=== PATIENT | female | born 1965 | race Caucasian/White ===

== ENCOUNTER 2016-09-28 13:19 | Inpatient (IN) | payer OTHER ==
[2016-09-28 15:35] VITALS: BMI 36.4
--- NOTE | 2016-09-28 18:47 | HP ---
COWS - Scale Resting Pulse: 1= ME 81-100 Sweatin= Chills/Flushing Restless Observation: 1= Difficult to Sit Still Pupil Size: 0= Normal to Room Light Bone or Joint Aches: 1= Mild Discomfort Runny Nose/ Eye Tearin= Nasal Congestion GI Upset > 30mins: 2= Nausea/Diarrhea Tremor Observation: 2= Slight Tremor Visible Yawning Observation: 0= None Anxiety or Irritability: 2=Irritable/Anxious Goose Flesh Skin: 3=Piloerection COWS Score: 14 CIWA Score - CIWA Score Nausea/Vomitin-Mild Nausea/No Vomiting Muscle Tremors: 4-Moderate,w/Arms Extend Anxiety: 4-Mod. Anxious/Guarded Agitation: 4-Moderately Restless Paroxysmal Sweats: 2 Orientation: 1-Uncertain about Date Tacttile Disturbances: 0-None Auditory Disturbances: 0-None Visual Disturbances: 0-None Headache: 2-Mild CIWA-Ar Total Score: 18 Admission ROS BHS - HPI Chief Complaint: WITHDRAWAL SX Allergies/Adverse Reactions: Allergies Allergy/AdvReac Type Severity Reaction Status Date / Time Penicillins Allergy Severe Verified 09/28/16 19:04 shellfish derived Allergy Severe Verified 09/28/16 19:04 venom-honey bee Allergy Severe Verified 09/28/16 19:04 [bee venom (honey bee)] History of Present Illness: 51 YEARS OLD FEMALE WITH LONG HISTORY OF ALCOHOL OPIATE NICOTINE DEPENDENCE, HAS LUPUS AND DEPRESSION, LONGEST SOBRIETY 7 YEARS IS ADMITTED TO DETOX Exam Limitations: No Limitations - Ebola screening Have you traveled outside of the country in the last 21 days: No Have you had contact with anyone from an Ebola affected area: No Have you been sick,other than usual withdrawal symptoms: No Do you have a fever: No - Review of Systems Constitutional: Chills, Changes in sleep, Weight Stable EENT: reports: Other (EYE GLASSES) Respiratory: reports: No Symptoms reported Cardiac: reports: No Symptoms Reported GI: reports: Nausea, Poor Fluid Intake, Abdominal cramping, Other (COLON REMOVED AT AGE OF 42) : reports: Other (PATIENT HAS RIGHT KIDNEY, UNABLE TO REMEMBER WHEN LOST HER LEFT KIDNEY) Musculoskeletal: reports: Muscle Weakness (WALKER) Neuro: reports: Other (DEGENARATED SPINAL DISEASE X "3 YEARS") Endocrine: reports: No Symptoms Reported Hematology: reports: No Symptoms Reported Psychiatric: reports: Judgement Intact, Mood/Affect Appropiate Other Systems: Reviewed and Negative Patient History - Patient Medical History Hx Anemia: No Hx Asthma: No Hx Chronic Obstructive Pulmonary Disease (COPD): No Hx Cancer: No Hx Cardiac Disorders: No Hx Congestive Heart Failure: No Hx Hypertension: Yes (on meds,non compliance) Hx Hypercholesterolemia: Yes (non compliance) Hx Pacemaker: No HX Cerebrovascular Accident: No Hx Seizures: Yes (xanax related seizure 1 month ago and alcohol related) Hx Dementia: No Hx Diabetes: No Hx Gastrointestinal Disorders: No Hx Liver Disease: No Hx Genitourinary Disorders: No Hx Sexually Transmitted Disorders: No Hx Renal Disease (ESRD): No Hx Thyroid Disease: No Hx Human Immunodeficiency Virus (HIV): No (09/29 last) Hx Hepatitis C: No Hx Depression: Yes Hx Suicide Attempt: No Hx Bipolar Disorder: No Hx Schizophrenia: Yes (schizoaffective ? not taking meds "I DO NOT HAVE SCHIZOPHRENIA) - Patient Surgical History Past Surgical History: Yes Hx Neurologic Surgery: No Hx Cataract Extraction: No Hx Cardiac Surgery: No Hx Lung Surgery: No Hx Breast Surgery: No Hx Breast Biopsy: No Hx Abdominal Surgery: No Hx Appendectomy: No Hx Cholecystectomy: No Hx Genitourinary Surgery: No Hx Section: Yes (x4 in 2006) Hx Orthopedic Surgery: Yes (Sx both heels from spurs fx both feet.) Hx Hysterectomy: Yes (in 2004 for bleeding and precancerous) Other Surgical History: Total hysterectomy in 2004 Sx both eyes Anesthesia Reaction: No - PPD History Previous Implant?: Yes Documented Results: Negative w/o proof Implanted On Prior [facility] Admission?: Yes Date: 12/20/13 PPD to be Administered?: Yes - Reproductive History Patient is a Female of Child Bearing Age (11 -55 yrs old): Yes Last Menstrual Period: 09/19/04 Patient : No - Smoking Cessation Smoking history: Current every day smoker Have you smoked in the past 12 months: Yes Aproximately how many cigarettes per day: 20 Cigars Per Day: 0 Hx Chewing Tobacco Use: No Initiated information on smoking cessation: Yes 'Breaking Loose' booklet given: 09/28/16 - Substance & Tx. History Hx Alcohol Use: Yes Hx Substance Use: Yes Substance Use Type: Alcohol, Opiates Hx Substance Use Treatment: Yes - Substances Abused Alcohol Route: Oral Frequency: Daily Amount used: 5 PINTS VOLKA Age of first use: 18 Date of Last Use: 09/27/16 Heroin Route: Inhalation Frequency: Daily Amount used: 10 BAGS Age of first use: 22 Date of Last Use: 09/27/16 Family Disease History - Family Disease History Family Disease History: Other: Mother (alcohol) Admission Physical Exam [facility] - Vital Signs Vital Signs: Vital Signs - 24 hr 09/28/16 15:29 Temperature 96 F L Pulse Rate 86 Respiratory 19 Rate Blood Pressure 141/51 - Physical General Appearance: Yes: Nourished, Appropriately Dressed, Mild Distress, Tremorous, Irritable, Sweating, Anxious HEENTM: Yes: Hearing grossly Normal, Normal ENT Inspection, Normocephalic, Normal Voice Respiratory: Yes: Chest Non-Tender, Lungs Clear, Normal Breath Sounds, No Respiratory Distress, No Accessory Muscle Use Neck: Yes: Supple, Trachea in good position Breast: Yes: Breasts Symetrical Cardiology: Yes: Regular Rhythm, Regular Rate, S1, S2 Genitourinary: Yes: Within Normal Limits, Other (RIGHT KIDNEY REMAIN) Back: Yes: Normal Inspection Musculoskeletal: Yes: Gait Steady (WALKER), Back pain, Muscle Pain, Muscle weakness Extremities: Yes: Non-Tender, Tremors Neurological: Yes: Alert, Normal Response, Depressed Affect Integumentary: Yes: Warm, Other ("I DO NOT USE NEEDLE") Lymphatic: Yes: Within Normal Limits - Diagnostic (1) History of hysterectomy Current Visit: Yes Status: Resolved (2) Hypercholesteremia Current Visit: Yes Status: Chronic Comment: I DO NOT WANT TO TAKE ANYTHING FOR IT (3) Lupus Current Visit: Yes Status: Chronic Comment: LEFT KIDNEY REMOVED UNKNOWN DATE AMBULATE WITH WALKER (4) Nicotine dependence Current Visit: Yes Status: Acute Qualifiers: Nicotine product type: cigarettes Substance use status: uncomplicated Qualified Code(s): F17.210 - Nicotine dependence, cigarettes, uncomplicated (5) Schizoaffective disorder Current Visit: Yes Status: Suspected Qualifiers: Schizoaffective disorder type: depressive Qualified Code(s): F25.1 - Schizoaffective disorder, depressive type (6) Alcohol dependence with uncomplicated withdrawal Current Visit: Yes Status: Acute Cleared for Admission [facility] - Detox or Rehab [facility] Level of Care: Medically Managed Detox Regimen/Protocol: Methadone/Librium BHS Breath Alcohol Content Breath Alcohol Content: 0 Urine Pregancy Test - Result Urine Test Results: Negative- NO Line Present Urine Drug Screen - Results Drug Screen Negative: No Urine Drug Screen Results: OPI-Opiates, BZO-Benzodiazepines, MTD-Methadone, TCA- Tricyclic Antidepress
[2016-09-28] MEDS ORDERED: LOPERAMIDE HCL 2 MG CAPSULE PO PRN (18:57)
[2016-09-28] MEDS ORDERED: chlordiazePOXIDE HCL 25 MG CAPSULE PO ONE (18:57)
[2016-09-28] MEDS ORDERED: METHADONE HCL 10 MG TABLET (FOR DETOX USE ONLY) PO ONE ×2 (18:57→23:00)
[2016-09-28] MEDS ORDERED: MAGNESIUM CITRATE 300 ML BOTTLE PO PRN (18:57)
[2016-09-28] MEDS ORDERED: MAGNESIUM HYDROX 2400MG/30ML ORAL SUSPENSION 30 ML CUP PO PRN (18:57)
[2016-09-28] MEDS ORDERED: P-EPHED 60MG/TRIPROLIDI 2.5MG TABLET PO PRN (18:57)
[2016-09-28] MEDS ORDERED: MENTHOL/PHENOL 1 EACH UD MM PRN (18:57)
[2016-09-28] MEDS ORDERED: ACETAMINOPHEN 325 MG TABLET (FP) PO PRN (18:57)
[2016-09-28] MEDS ORDERED: MAG HYDROX/AL HYDROX/SIMETH 30 ML UNIT-DOSE CUP PO PRN (18:57)
[2016-09-28] MEDS ORDERED: guaiFENesin/D-METHORPHAN HB 10 ML UNIT-DOSE CUPS PO PRN (18:57)
[2016-09-28] MEDS ORDERED: ONDANSETRON *ODT* 4 MG TABLET SL PRN (19:00)
[2016-09-28] MEDS ORDERED: cloNIDine HCL 0.1 MG TABLET PO PRN (19:02)
[2016-09-28] MEDS: HYDROCHLOROTHIAZIDE 25 MG TABLET (FP) PO SCH (20:26)
[2016-09-28] MEDS: NICOTINE POLACRILEX 2 MG GUM BC PRN (21:19)
[2016-09-28] MEDS: diphenhydrAMINE HCL 50 MG CAPSULE PO PRN (22:29)
[2016-09-28] MEDS: THIAMINE HCL 100 MG TABLET (FP) PO SCH (22:29)
[2016-09-28] MEDS: chlordiazePOXIDE HCL 25 MG CAPSULE PO SCH (22:29)
[2016-09-28] MEDS: CELECOXIB 100 MG CAPSULE PO SCH ×2 (23:45→23:57)
[2016-09-29 05:33] LABS: URINE APPEARANCE SLCLOUDY; URINE BILIRUBIN NEGATIVE (NEGATIVE); URINE BLOOD NEGATIVE (NEGATIVE); URINE COLOR YELLOW; URINE GLUCOSE (UA) NEGATIVE (NEGATIVE); URINE KETONE NEGATIVE (NEGATIVE); URINE LEUK ESTERASE NEGATIVE (NEGATIVE); URINE NITRITE NEGATIVE (NEGATIVE); URINE PROTEIN NEGATIVE (NEGATIVE); URINE UROBILINOGEN NEGATIVE E.U./dl (0.2-1.0)
[2016-09-29] MEDS: chlordiazePOXIDE HCL 25 MG CAPSULE PO SCH ×4 (06:24→22:08)
--- NOTE | 2016-09-29 09:52 | PN ---
S CIWA - CIWA Score Nausea/Vomitin Muscle Tremors: 3 Anxiety: 2 Agitation: 3 Paroxysmal Sweats: 1-Minimal Palms Moist Orientation: 0-Oriented Tacttile Disturbances: 1-Very Mild Itch/Numbness Auditory Disturbances: 1-Very Mild Visual Disturbances: 1-Very Mild Sensitivity Headache: 2-Mild CIWA-Ar Total Score: 17 BHS Progress Note (SOAP) Subjective: ALERT,IRRITABLE,ANXIOUS,INTERRUPTED SLEEP,TREMOR Objective: 09/29/16 09:50 Vital Signs Temperature 96.3 F L 09/29/16 06:00 Pulse Rate 74 09/29/16 06:00 Respiratory Rate 18 09/29/16 06:00 Blood Pressure 149/73 09/29/16 06:00 O2 Sat by Pulse Oximetry (%) 09/29/16 09:50 EKG NSR,NORMAL ECG Laboratory Last Values Urine Color Yellow 09/28/16 22:13 Urine Appearance Slcloudy 09/28/16 22:13 Urine pH 5.0 (5.0-8.0) D 09/28/16 22:13 Ur Specific [place] 1.026 (1.001-1.035) 09/28/16 22:13 Urine Protein Negative (NEGATIVE) 09/28/16 22:13 Urine Glucose (UA) Negative (NEGATIVE) 09/28/16 22:13 Urine Ketones Negative (NEGATIVE) 09/28/16 22:13 Urine Blood Negative (NEGATIVE) 09/28/16 22:13 Urine Nitrite Negative (NEGATIVE) 09/28/16 22:13 Urine Bilirubin Negative (NEGATIVE) 09/28/16 22:13 Urine Urobilinogen Negative E.U./dl (0.2-1.0) 09/28/16 22:13 Ur Leukocyte Esterase Negative (NEGATIVE) 09/28/16 22:13 LABS PENDING Assessment: 09/29/16 09:51 WITHDRAWAL SYMPTOM Plan: CONTINUE DETOX [facility]IM[facility]
[2016-09-29] MEDS ORDERED: METHADONE HCL 10 MG TABLET (FOR DETOX USE ONLY) PO SCH (10:00)
[2016-09-29 10:33] LABS: MCH 30.7 pg (25.7-33.7); MEAN CELL VOLUME 93.2 fl (80-96); MEAN PLT VOLUME 8.2 fl (7.5-11.1); PLATELET COUNT 295 K/MM3 (134-434); RDW 13.6 % (11.6-15.6)
[2016-09-29] MEDS: PRENATAL VITAMINS W/ FOLIC ACID TABLET (FP) PO SCH (10:52)
[2016-09-29] MEDS: NICOTINE 21 MG/24 HOURS TOPICAL PATCH TD SCH (10:53)
[2016-09-29] MEDS: HYDROCHLOROTHIAZIDE 25 MG TABLET (FP) PO SCH (10:53)
[2016-09-29] MEDS: CELECOXIB 100 MG CAPSULE PO SCH ×2 (10:53→22:09)
[2016-09-29] MEDS: NICOTINE POLACRILEX 2 MG GUM BC PRN ×4 (10:54→22:11)
--- NOTE | 2016-09-29 11:07 | PN ---
S Progress Note Note: PATIENT STATED SHE HAS HISTORY OF SEIZURE ,ON NEURONTIN 100 MGS PO BID,LAST SEIZURE 5 DAYS,MEDICATION ORDER, SEIZURE PRECAUTION
--- NOTE | 2016-09-29 11:18 | CONSULT ---
[facility] Psychiatric Consult - Data Date of interview: 09/29/16 Admission source: [facility] Identifying data: This is one of multiple admissions to [facility] for this 51 y/ o female seeking detox treatment on for heroin dependence.Patient is ,a mother of five,domiciled and self-supported. Substance Abuse History: - Smoking Cessation. Smoking history: Current every day smoker. Have you smoked in the past 12 months: Yes. Aproximately how many cigarettes per day: 20. Cigars Per Day: 0. Hx Chewing Tobacco Use: No. Initiated information on smoking cessation: Yes. 'Breaking Loose' booklet given : 09/28/16. - Substance & Tx. History. Hx Alcohol Use: Yes. Hx Substance Use : Yes. Substance Use Type: Alcohol, Opiates. Hx Substance Use Treatment: Yes. - Substances Abused. Alcohol. Route: Oral. Frequency: Daily. Amount used: 5 PINTS VOLKA. Age of first use: 18. Date of Last Use: 09/27/16. Heroin. Route: Inhalation. Frequency: Daily. Amount used: 10 BAGS. Age of first use: 22. Date of Last Use: 09/27/16. Confirmed by patient. Medical History: Significant for lupus,hypercholesterolemia,hypertension, osteoarthritis,withdrawal related seizures,degenerative spinal disease and a history of left nephrectomy.Noted report of colectomy (age 42). Psychiatric History: Patient denies history of psychiatric hospitalizations.No history of OPD care.She takes gabapentin for pain syndrome.No reported history of suicide attempts. Physical/Sexual Abuse/Trauma History: Stressors :serious medical illnesses. Additional Comment: Urine Drug Screen Results: OPI-Opiates, BZO-Benzodiazepines , MTD-Methadone, TCA-Tricyclic Antidepressant.Noted. Mental Status Exam - Mental Status Exam Alert and Oriented to: Time, Place, Person Cognitive Function: Good Patient Appearance: Well Groomed Mood: Hopeful Affect: Appropriate, Normal Range Patient Behavior: Fatigued, Appropriate, Cooperative Speech Pattern: Clear (articulate) Voice Loudness: Normal Thought Process: Goal Oriented Thought Disorder: Not Present Hallucinations: Denies Suicidal Ideation: Denies Homicidal Ideation: Denies Insight/Judgement: Poor Sleep: Fair Appetite: Good Gait/Station: Other (ambulates with a walker) Psychiatric Findings - Problem List ([place] 1, 2,3) (1) Alcohol dependence with uncomplicated withdrawal Current Visit: Yes Status: Acute (2) Opioid dependence Current Visit: Yes Status: Acute (3) Nicotine dependence Current Visit: Yes Status: Acute Qualifiers: Nicotine product type: cigarettes Substance use status: uncomplicated Qualified Code(s): F17.210 - Nicotine dependence, cigarettes, uncomplicated (4) Drug-induced mood disorder Current Visit: Yes Status: Acute (5) Hypercholesteremia Current Visit: Yes Status: Chronic Comment: I DO NOT WANT TO TAKE ANYTHING FOR IT (6) Lupus Current Visit: Yes Status: Chronic Comment: LEFT KIDNEY REMOVED UNKNOWN DATE AMBULATE WITH WALKER (7) History of hysterectomy Current Visit: Yes Status: Resolved (8) Osteoarthritis Current Visit: Yes Status: Active (9) Seizure Current Visit: No Status: Active - Initial Treatment Plan Initial Treatment Plan: Psychoeducation.Detoxification.Observation.Fall precautions.
[2016-09-29 11:41] LABS: ALK PHOS 61 U/L (45-117); ANION GAP 10 (8-16); BILIRUBIN,TOTAL 0.3 mg/dL (0.2-1.0); CO2 31 mmol/L (21-32); CREATININE 0.8 mg/dL (0.55-1.02); GLUCOSE,RANDOM 96 mg/dL (74-106); SGOT/AST 18 U/L (15-37); SGPT/ALT 43 U/L (12-78); TOT PROT 7.2 g/dl (6.4-8.2)
[2016-09-29] MEDS ORDERED: GABAPENTIN 100 MG CAPSULE (FP) PO ONE (11:45)
--- NOTE | 2016-09-29 16:20 | EKG ---
Test Reason : Blood Pressure : / mmHG Vent. Rate : 072 BPM Atrial Rate : 072 BPM P-R Int : 152 ms QRS Dur : 088 ms QT Int : 388 ms P-R-T Axes : 053 067 064 degrees QTc Int : 424 ms NORMAL SINUS RHYTHM NORMAL ECG NO PREVIOUS ECGS AVAILABLE Confirmed by DG LEY, KARON ([id number]) on 09/29/2016 4:20:22 PM Referred By: Angel Luis Junior Confirmed By:KARON CONTE MD
[2016-09-29] MEDS: IBUPROFEN 400 MG TABLET (FP) PO PRN (21:39)
[2016-09-29] MEDS: THIAMINE HCL 100 MG TABLET (FP) PO SCH (22:09)
[2016-09-29] MEDS: GABAPENTIN 100 MG CAPSULE (FP) PO SCH (22:09)
[2016-09-29] MEDS: diphenhydrAMINE HCL 50 MG CAPSULE PO PRN (22:09)
[2016-09-30] MEDS: chlordiazePOXIDE HCL 25 MG CAPSULE PO SCH ×3 (05:44→17:12)
[2016-09-30] MEDS: IBUPROFEN 400 MG TABLET (FP) PO PRN ×2 (05:46→13:21)
[2016-09-30] MEDS: CELECOXIB 100 MG CAPSULE PO SCH ×2 (10:22→21:33)
[2016-09-30] MEDS: PRENATAL VITAMINS W/ FOLIC ACID TABLET (FP) PO SCH (10:22)
[2016-09-30] MEDS: HYDROCHLOROTHIAZIDE 25 MG TABLET (FP) PO SCH (10:22)
[2016-09-30] MEDS: GABAPENTIN 100 MG CAPSULE (FP) PO SCH ×2 (10:22→21:34)
[2016-09-30] MEDS: METHADONE HCL 5 MG TABLET (FOR DETOX USE ONLY) PO SCH (10:23)
[2016-09-30] MEDS: NICOTINE 21 MG/24 HOURS TOPICAL PATCH TD SCH (10:25)
[2016-09-30] MEDS: CYCLOBENZAPRINE HCL 10 MG TABLET (FP) PO PRN (10:25)
[2016-09-30] MEDS: NICOTINE POLACRILEX 2 MG GUM BC PRN ×3 (10:29→21:51)
--- NOTE | 2016-09-30 10:41 | PN ---
[facility] CIWA - CIWA Score Nausea/Vomitin Muscle Tremors: 3 Anxiety: 3 Agitation: 3 Paroxysmal Sweats: 1-Minimal Palms Moist Orientation: 0-Oriented Tacttile Disturbances: 1-Very Mild Itch/Numbness Auditory Disturbances: 1-Very Mild Visual Disturbances: 1-Very Mild Sensitivity Headache: 2-Mild CIWA-Ar Total Score: 18 BHS COWS - Scale Resting Pulse: 1= [place] 81-100 Sweatin= Chills/Flushing Restless Observation: 3= Extraneous Movement Pupil Size: 1= Pupils >than Normal Bone or Joint Aches: 2= Severe Diffuse Aches Runny Nose/ Eye Tearin= Runny Nose/Eyes GI Upset > 30mins: 2= Nausea/Diarrhea Tremor Observation of Outstretched Hands: 2= Slight Tremor Visible Yawning Observation: 1= 1-2x During Session Anxiety or Irritability: 2=Irritable/Anxious Goose Flesh Skin: 0=Smooth Skin COWS Score: 17 S Progress Note (SOAP) Subjective: ALERT,IRRITABLE,ANXIOUS,INTERRUPTED SLEEP,TREMOR Objective: 09/30/16 10:40 Vital Signs Temperature 97.3 F L 09/30/16 10:00 Pulse Rate 86 09/30/16 10:00 Respiratory Rate 16 09/30/16 10:00 Blood Pressure 150/54 09/30/16 10:00 O2 Sat by Pulse Oximetry (%) 09/30/16 10:40 Laboratory Last Values WBC 10.0 K/mm3 (4.0-10.0) 09/29/16 08:00 RBC 4.85 M/mm3 (3.60-5.2) 09/29/16 08:00 Hgb 14.9 GM/dL (10.7-15.3) 09/29/16 08:00 Hct 45.1 % (32.4-45.2) 09/29/16 08:00 MCV 93.2 fl (80-96) 09/29/16 08:00 MCHC 33.0 g/dl (32.0-36.0) 09/29/16 08:00 RDW 13.6 % (11.6-15.6) 09/29/16 08:00 Plt Count 295 K/MM3 (134-434) D 09/29/16 08:00 MPV 8.2 fl (7.5-11.1) 09/29/16 08:00 Sodium 141 mmol/L (136-145) 09/29/16 08:00 Potassium 4.5 mmol/L (3.5-5.1) 09/29/16 08:00 Chloride 100 mmol/L (98-107) 09/29/16 08:00 Carbon Dioxide 31 mmol/L (21-32) 09/29/16 08:00 Anion Gap 10 (8-16) 09/29/16 08:00 BUN 13 mg/dL (7-18) D 09/29/16 08:00 Creatinine 0.8 mg/dL (0.55-1.02) 09/29/16 08:00 Creat Clearance w eGFR > 60 (>60) 09/29/16 08:00 Random Glucose 96 mg/dL (74-106) 09/29/16 08:00 Calcium 9.0 mg/dL (8.5-10.1) 09/29/16 08:00 Total Bilirubin 0.3 mg/dL (0.2-1.0) 09/29/16 08:00 AST 18 U/L (15-37) 09/29/16 08:00 ALT 43 U/L (12-78) 09/29/16 08:00 Alkaline Phosphatase 61 U/L (45-117) 09/29/16 08:00 Total Protein 7.2 g/dl (6.4-8.2) 09/29/16 08:00 Albumin 4.0 g/dl (3.4-5.0) 09/29/16 08:00 Urine Color Yellow 09/28/16 22:13 Urine Appearance Slcloudy 09/28/16 22:13 Urine pH 5.0 (5.0-8.0) D 09/28/16 22:13 Ur Specific [place] 1.026 (1.001-1.035) 09/28/16 22:13 Urine Protein Negative (NEGATIVE) 09/28/16 22:13 Urine Glucose (UA) Negative (NEGATIVE) 09/28/16 22:13 Urine Ketones Negative (NEGATIVE) 09/28/16 22:13 Urine Blood Negative (NEGATIVE) 09/28/16 22:13 Urine Nitrite Negative (NEGATIVE) 09/28/16 22:13 Urine Bilirubin Negative (NEGATIVE) 09/28/16 22:13 Urine Urobilinogen Negative E.U./dl (0.2-1.0) 09/28/16 22:13 Ur Leukocyte Esterase Negative (NEGATIVE) 09/28/16 22:13 RPR Titer Nonreactive (NONREACTIVE) 09/29/16 08:00 Assessment: 09/30/16 10:41 WITHDRAWAL SYMPTOM Plan: CONTINUE DETOX
[2016-09-30] MEDS: chlordiazePOXIDE HCL 25 MG CAPSULE PO PRN (13:21)
[2016-09-30] MEDS: THIAMINE HCL 100 MG TABLET (FP) PO SCH (21:30)
[2016-09-30] MEDS: diphenhydrAMINE HCL 50 MG CAPSULE PO PRN (21:35)
[2016-09-30] MEDS: chlordiazePOXIDE 5 MG CAPSULE PO SCH (23:00)
[2016-10-01] MEDS: chlordiazePOXIDE 5 MG CAPSULE PO SCH ×3 (05:53→18:22)
[2016-10-01] MEDS: IBUPROFEN 400 MG TABLET (FP) PO PRN ×2 (08:29→18:26)
[2016-10-01] MEDS: CYCLOBENZAPRINE HCL 10 MG TABLET (FP) PO PRN ×2 (08:30→18:27)
[2016-10-01] MEDS: NICOTINE POLACRILEX 2 MG GUM BC PRN ×3 (08:32→18:26)
--- NOTE | 2016-10-01 09:31 | PN ---
S Progress Note (SOAP) Subjective: ALERT,IRRITABLE,ANXIOUS,INTERRUPTED SLEEP Objective: 10/01/16 09:31 Vital Signs Temperature 97.7 F 10/01/16 06:00 Pulse Rate 76 10/01/16 06:00 Respiratory Rate 18 10/01/16 06:00 Blood Pressure 104/64 10/01/16 06:00 O2 Sat by Pulse Oximetry (%) Assessment: 10/01/16 09:31 WITHDRAWAL SYMPTOM Plan: CONTINUE DETOX,DISCHARGE IN AM
[2016-10-01] MEDS: HYDROCHLOROTHIAZIDE 25 MG TABLET (FP) PO SCH (10:12)
[2016-10-01] MEDS: METHADONE HCL 5 MG TABLET (FOR DETOX USE ONLY) PO SCH (10:12)
[2016-10-01] MEDS: CELECOXIB 100 MG CAPSULE PO SCH ×2 (10:12→23:48)
[2016-10-01] MEDS: PRENATAL VITAMINS W/ FOLIC ACID TABLET (FP) PO SCH (10:12)
[2016-10-01] MEDS: NICOTINE 21 MG/24 HOURS TOPICAL PATCH TD SCH (10:13)
[2016-10-01] MEDS ORDERED: diphenhydrAMINE HCL 25 MG CAPSULE (FP) PO ONE (10:14)
[2016-10-01] MEDS: GABAPENTIN 100 MG CAPSULE (FP) PO SCH ×2 (10:15→22:24)
[2016-10-01] MEDS: chlordiazePOXIDE HCL 25 MG CAPSULE PO PRN (13:42)
[2016-10-01] MEDS: chlordiazePOXIDE HCL 10 MG CAPSULE PO SCH (22:24)
[2016-10-01] MEDS: THIAMINE HCL 100 MG TABLET (FP) PO SCH (22:25)
[2016-10-01] MEDS: diphenhydrAMINE HCL 50 MG CAPSULE PO PRN (22:25)
[2016-10-02] MEDS: chlordiazePOXIDE HCL 10 MG CAPSULE PO SCH (05:16)
[2016-10-02] MEDS: NICOTINE POLACRILEX 2 MG GUM BC PRN (05:18)
--- NOTE | 2016-10-02 08:43 | DS ---
[facility] Detox Discharge Summary Admission Date: 09/28/16 Discharge Date: 10/02/16 - History Present History: Alcohol Dependence, Cocaine Dependence, Opioid Dependence - Physical Exam Results Vital Signs: Vital Signs Temperature 97.4 F L 10/02/16 06:43 Pulse Rate 71 10/02/16 06:43 Respiratory Rate 18 10/02/16 06:43 Blood Pressure 104/63 10/02/16 06:43 O2 Sat by Pulse Oximetry (%) - Treatment Hospital Course: Detox Protocol Followed, Detoxed Safely, Responded well, Discharged Condition Good - Medication Discharge Medications: Ambulatory Orders Hydrochlorothiazide [Hctz -] 25 mg PO DAILY #30 tablet 03/10/14 Pravastatin Sodium [Pravachol -] 20 mg PO HS #30 tablet 03/10/14 - Diagnosis (1) Osteoarthritis Current Visit: No Status: Active (2) Alcohol dependence with uncomplicated withdrawal Current Visit: Yes Status: Chronic (3) Drug-induced mood disorder Current Visit: Yes Status: Chronic (4) Nicotine dependence Current Visit: Yes Status: Chronic Qualifiers: Nicotine product type: cigarettes Substance use status: uncomplicated Qualified Code(s): F17.210 - Nicotine dependence, cigarettes, uncomplicated (5) Opioid dependence Current Visit: Yes Status: Chronic Qualifiers: Substance use status: uncomplicated Qualified Code(s): F11.20 - Opioid dependence, uncomplicated (6) Hypercholesteremia Current Visit: Yes Status: Chronic (7) Lupus Current Visit: Yes Status: Chronic (8) Schizoaffective disorder Current Visit: Yes Status: Suspected Qualifiers: Schizoaffective disorder type: depressive Qualified Code(s): F25.1 - Schizoaffective disorder, depressive type - AMA Did Patient Leave Against Medical Advice: No (pt being d/c'ed early after methadone 10mg dispensed at her request. )
[2016-10-02] MEDS: PRENATAL VITAMINS W/ FOLIC ACID TABLET (FP) PO SCH (09:20)
[2016-10-02] MEDS: CELECOXIB 100 MG CAPSULE PO SCH (09:20)
[2016-10-02] MEDS: HYDROCHLOROTHIAZIDE 25 MG TABLET (FP) PO SCH (09:20)
[2016-10-02] MEDS: GABAPENTIN 100 MG CAPSULE (FP) PO SCH (09:45)
[2016-10-02] MEDS: NICOTINE 21 MG/24 HOURS TOPICAL PATCH TD SCH (09:45)
[2016-10-02] MEDS ORDERED: METHADONE HCL 10 MG TABLET (FOR DETOX USE ONLY) PO SCH (10:00)
[2016-10-02 10:05] VITALS: BP 117/85; PULSE 111; TEMP 97.9
[2016-10-03] MEDS ORDERED: METHADONE HCL 5 MG TABLET (FOR DETOX USE ONLY) PO SCH (06:00)
== END 2016-10-02 10:30 | disposition home or self-care (01) | DRG 773 ==
LOC: YASAS 13:19 → Y6N 19:35
PROVIDERS: ADMIT Internal Medicine; ATTEND Internal Medicine
PROC: HZ2ZZZZ Detoxification Services for Substance Abuse Treatment (ICD-10-PCS; principal; 2016-10-02)
DX: F10.230 Alcohol dependence with withdrawal, uncomplicated (principal); F11.20 Opioid dependence, uncomplicated; F17.210 Nicotine dependence, cigarettes, uncomplicated; F19.24 Other psychoactive substance dependence with psychoactive substance-induced mood disorder; F25.1 Schizoaffective disorder, depressive type; M19.90 Unspecified osteoarthritis, unspecified site; E78.00 Pure hypercholesterolemia, unspecified; M32.9 Systemic lupus erythematosus, unspecified; I10 Essential (primary) hypertension; G40.909 Epilepsy, unspecified, not intractable, without status epilepticus; R26.2 Difficulty in walking, not elsewhere classified; Z99.89 Dependence on other enabling machines and devices; Z90.5 Acquired absence of kidney; Z90.710 Acquired absence of both cervix and uterus; Z91.14 Patient's other noncompliance with medication regimen; Z90.49 Acquired absence of other specified parts of digestive tract
CPT/HCPCS: 36415; 80053; 81003; 85027; 86593; 93005; 93010